=== PATIENT | male | born 1980 | race Caucasian/White ===

== ENCOUNTER 2018-05-24 21:50 | Inpatient (IN) | payer OTHER ==
[2018-05-25] MEDS ORDERED: KETOROLAC 30 MG/ML 1 ML VIAL ONE (00:36)
[2018-05-25] MEDS ORDERED: ACETAMINOPHEN TAB 500 MG TAB ONE (00:36)
[2018-05-25] MEDS ORDERED: ONDANSETRON 4 MG/2 ML VIAL ONE (00:36)
[2018-05-25] MEDS ORDERED: SODIUM CHLORIDE 0.9% 1,000 ML BAG ONE (01:00)
[2018-05-25] MEDS ORDERED: metroNIDAZOLE-NS PMX 500 MG/100 ML BAG ONE (01:00)
[2018-05-25] MEDS ORDERED: cefTRIAXone IN SWFI 1,000 MG/10 ML SYRINGE IVP ONE (01:00)
[2018-05-25 05:37] VITALS: BMI 31.4
[2018-05-25 06:40] LABS: Appearance,Urine Clear (Clear); Bilirubin,Urine Negative (Negative); Blood,Urine Negative (Negative); Color,Urine Yellow; Glucose,Urine (UA) Negative (Negative); Ketones,Urine Trace (Negative); Leukocyte Esterase,Urine Negative (Negative); Mucus,Urine Rare /hpf; Nitrite,Urine Negative (Negative); PH, Urine 5.5 (5.0-8.0); Protein,Urine Negative (Negative); Specific Gravity,Urine 1.018 (1.001-1.035); Urobilinogen,Urine <2.0 mg/dL (<2.0); WBC,Urine <1 /hpf (0-5)
[2018-05-25 06:42] LABS: ALT 42 U/L (21-72); AST 27 U/L (17-59); Albumin 4.4 g/dL (3.5-5.0); Alkaline Phosphatase 93 U/L (38-126); Amylase 59 U/L (30-110); Anion Gap 11 mmol/L; Blood Urea Nitrogen 18 mg/dL (9-20); Calcium 9.6 mg/dL (8.4-10.2); Carbon Dioxide 23 mmol/L (22-30); Chloride 103 mmol/L (98-107); Glucose 100 mg/dL (74-99); Lipase 159 U/L (23-300); Potassium 4.5 mmol/L (3.5-5.1); Sodium 137 mmol/L (137-145); Total Bilirubin 0.5 mg/dL (0.2-1.3); Total Protein 7.2 g/dL (6.3-8.2)
[2018-05-25 06:48] LABS: Basophils % (A) 0 %; Eosinophils % (A) 0 %; HCT 43.6 % (39.0-53.0); HGB 15.1 gm/dL (13.0-17.5); Lymphocytes # (A) 0.6 k/uL (1.0-4.8); Lymphocytes % (A) 7 %; MCH 30.8 pg (25.0-35.0); MCHC 34.6 g/dL (31.0-37.0); MCV 88.9 fL (80.0-100.0); Monocytes # (A) 0.3 k/uL (0-1.0); Monocytes % (A) 4 %; Neutrophils # (A) 6.9 k/uL (1.3-7.7); Neutrophils % (A) 87 %; Platelet Count 261 k/uL (150-450); RDW 12.9 % (11.5-15.5)
[2018-05-25] MEDS ORDERED: ACETAMINOPHEN IV (For NPO) 1,000 MG in EMPTY BAG 1 BAG IVPB PRN (07:41)
--- NOTE | 2018-05-25 11:44 | CT ---
EXAMINATION TYPE: CT abdomen pelvis w con DATE OF EXAM: 05/25/2018 COMPARISON: None HISTORY: RLQ pain and fever CT DLP: 1541.00 mGycm, Automated Exposure Control for Dose Reduction was Utilized. CONTRAST: CT scan of the abdomen and pelvis is performed without oral but with IV Contrast, patient injected wi th 100 mL of Isovue 300. FINDINGS: LUNG BASES: There is partial visualization of right-sided gynecomastia. LIVER/GB: No significant abnormality is appreciated. PANCREAS: Slight heterogeneity of the pancreas without surrounding that stranding or inflammatory tony nge. SPLEEN: No significant abnormality is seen. ADRENALS: No significant abnormality is seen. KIDNEYS: No significant abnormality is seen. BOWEL: Evaluation of bowel slightly suboptimal due to lack of enteric contrast. There is no suspiciou s small and large bowel dilatation. There is appendicolith in appendix axial image 77. Appendix is no t suspiciously dilated from base of cecum. No surrounding inflammation or fat stranding is present. T here is [id number] wall thickening of the right colon extending to the transverse colon and lef t colon up to junction of sigmoid colon. Findings suspicious for a fairly long segment colitis. No we ll-formed fluid collection or abscess is seen. No pneumoperitoneum is evident. PROSTATE/SEMINAL VESICLES: No gross abnormality seen. LYMPH NODES: No greater than 1cm abdominal or pelvic lymph nodes are appreciated. OSSEOUS STRUCTURES: There is moderate disc space narrowing L4-L5 level. There is vacuum disc phenomen on with mild disc space narrowing L5-S1 level. There is facet arthropathy lower lumbar levels. OTHER: There are moderate size right greater than left fat-containing inguinal hernias. Tiny fat-cont aining umbilical hernia axial image 61 IMPRESSION: Appendicolith without convincing CT evidence for acute appendicitis. Suspect very long se gment colitis from cecum up to descending colon junction with sigmoid colon. Differential includes in fectious and inflammatory etiologies. Correlate clinically.
[2018-05-25 11:47] LABS: Basophils % (A) 0 %; Eosinophils % (A) 0 %; HCT 39.5 % (39.0-53.0); HGB 13.4 gm/dL (13.0-17.5); Lymphocytes # (A) 0.5 k/uL (1.0-4.8); Lymphocytes % (A) 8 %; MCHC 33.8 g/dL (31.0-37.0); MCV 88.8 fL (80.0-100.0); Mean Platelet Volume 6.3; Monocytes # (A) 0.3 k/uL (0-1.0); Monocytes % (A) 4 %; Neutrophils # (A) 5.5 k/uL (1.3-7.7); Neutrophils % (A) 86 %; Platelet Count 238 k/uL (150-450); RBC 4.45 m/uL (4.30-5.90); RDW 12.9 % (11.5-15.5); WBC 6.4 k/uL (3.8-10.6)
[2018-05-25] MEDS ORDERED: HYDROmorphone 1 MG/ML 1 ML SYRINGE IVP PRN (11:58)
--- NOTE | 2018-05-25 12:08 | P.GSHP ---
History of Present Illness H&P Date: 05/25/18 This is a 38-year-old male who presented with a 24-hour history of abdominal pain. He states the pain has progressively been getting worse he admits to a little bit of nausea no vomiting and he's been having multiple episodes of loose diarrhea. He denies any blood in his diarrhea. He's never had anything like this before. He's never had abdominal surgery. He did have some fevers at home. His temperature was 101.7 upon arrival. He describes the pain as an aching pain in his lower abdomen on both sides. He has no history of Crohn's or ulcerative colitis that he knows of. He has no sick contacts and he states he did not eat anything out of the ordinary prior to this pain beginning. Past Medical History History of Any Multi-Drug Resistant Organisms: None Reported Past Surgical History: Adenoidectomy, Tonsillectomy Additional Past Surgical History / Comment(s): Right elbo surgery Past Anesthesia/Blood Transfusion Reactions: No Reported Reaction Past Psychological History: No Psychological Hx Reported Smoking Status: Former smoker Past Alcohol Use History: Daily Additional Past Alcohol Use History / Comment(s): pt reports consuming 1-2 beers /day Past Drug Use History: None Reported - Past Family History Father Family Medical History: Myocardial Infarction ([place]) Brother(s) Family Medical History: Diabetes Mellitus Medications and Allergies Home Medications Medication Instructions Recorded Confirmed Type No Known Home Medications 05/25/18 05/25/18 History Allergies Allergy/AdvReac Type Severity Reaction Status Date / Time No Known Allergies Allergy Verified 05/25/18 07:59 Surgical - Exam Osteopathic Statement: *. No significant issues noted on an osteopathic structural exam other than those noted in the History and Physical/Consult. Vital Signs Temp Pulse Resp BP Pulse Ox 101.7 F H 112 H 18 127/74 96 05/25/18 05:22 05/25/18 05:22 05/25/18 05:22 05/25/18 05:22 05/25/18 05:22 - General well developed, well nourished, no distress - Neck trachea midline - Respiratory normal expansion, normal respiratory effort - Cardiovascular Rhythm: regular - Abdomen Soft, nondistended, mild tenderness to palpation in bilateral lower quadrants. No rebound rigidity or guarding - Neurologic normal coordination, normal sensation - Psychiatric oriented to time, oriented to person, oriented to place Results - Labs 05/25/18 11:26 05/25/18 00:15 Abnormal Lab Results - Last 24 Hours (Table) 05/24/18 05/25/18 05/25/18 Range/Units 23:50 00:15 00:15 Lymphocytes # 0.6 L (1.0-4.8) k/uL Glucose 100 H (74-99) mg/dL Urine Ketones Trace H (Negative) Urine Mucus Rare H (None) /hpf 05/25/18 Range/Units 11:26 Lymphocytes # 0.5 L (1.0-4.8) k/uL Glucose (74-99) mg/dL Urine Ketones (Negative) Urine Mucus (None) /hpf Microbiology - Last 24 Hours (Table) 05/24/18 23:50 Urine Culture - Preliminary Urine,Voided Diabetes panel 05/25/18 Range/Units 00:15 Sodium 137 (137-145) mmol/L Potassium 4.5 (3.5-5.1) mmol/L Chloride 103 (98-107) mmol/L Carbon Dioxide 23 (22-30) mmol/L BUN 18 (9-20) mg/dL Creatinine 0.80 (0.66-1.25) mg/dL Glucose 100 H (74-99) mg/dL Calcium 9.6 (8.4-10.2) mg/dL AST 27 (17-59) U/L ALT 42 (21-72) U/L Alkaline Phosphatase 93 (38-126) U/L Total Protein 7.2 (6.3-8.2) g/dL Albumin 4.4 (3.5-5.0) g/dL Calcium panel 05/25/18 Range/Units 00:15 Calcium 9.6 (8.4-10.2) mg/dL Albumin 4.4 (3.5-5.0) g/dL Pituitary panel 05/25/18 Range/Units 00:15 Sodium 137 (137-145) mmol/L Potassium 4.5 (3.5-5.1) mmol/L Chloride 103 (98-107) mmol/L Carbon Dioxide 23 (22-30) mmol/L BUN 18 (9-20) mg/dL Creatinine 0.80 (0.66-1.25) mg/dL Glucose 100 H (74-99) mg/dL Calcium 9.6 (8.4-10.2) mg/dL Adrenal panel 05/25/18 Range/Units 00:15 Sodium 137 (137-145) mmol/L Potassium 4.5 (3.5-5.1) mmol/L Chloride 103 (98-107) mmol/L Carbon Dioxide 23 (22-30) mmol/L BUN 18 (9-20) mg/dL Creatinine 0.80 (0.66-1.25) mg/dL Glucose 100 H (74-99) mg/dL Calcium 9.6 (8.4-10.2) mg/dL Total Bilirubin 0.5 (0.2-1.3) mg/dL AST 27 (17-59) U/L ALT 42 (21-72) U/L Alkaline Phosphatase 93 (38-126) U/L Total Protein 7.2 (6.3-8.2) g/dL Albumin 4.4 (3.5-5.0) g/dL - Imaging CT scan - abdomen: report reviewed, image reviewed CT scan - pelvis: report reviewed, image reviewed Assessment and Plan Assessment: Colitis in a ascending and transverse colon. Initially concern was for appendicitis however patient was seen early this morning and observed his abdominal pain is not increased and his white count has remained within normal limits. Suspicion is low for appendicitis at this time. Plan: Plan is for conservative therapy. Antibiotics for colitis. We will obtain stool studies and test for C. diff. Continue with IV hydration and patient may have a clear liquid diet as tolerated when his abdominal pain improves.
[2018-05-25 12:10] LABS: ALT 38 U/L (21-72); AST 18 U/L (17-59); Albumin 3.6 g/dL (3.5-5.0); Alkaline Phosphatase 77 U/L (38-126); Anion Gap 7 mmol/L; Blood Urea Nitrogen 17 mg/dL (9-20); Calcium 8.5 mg/dL (8.4-10.2); Carbon Dioxide 23 mmol/L (22-30); Chloride 107 mmol/L (98-107); Glucose 110 mg/dL (74-99); Potassium 3.6 mmol/L (3.5-5.1); Sodium 137 mmol/L (137-145); Total Bilirubin 0.5 mg/dL (0.2-1.3); Total Protein 6.1 g/dL (6.3-8.2)
[2018-05-25] MEDS ORDERED: SODIUM CHLORIDE 0.9% 2,000 ML IV ONE (12:34)
[2018-05-25] MEDS ORDERED: ONDANSETRON 4 MG/2 ML VIAL IVP PRN (12:36)
[2018-05-25] MEDS ORDERED: LEVOFLOXACIN 750MG-D5W PMX 750 MG in DEXTROSE/WATER 1 150ML.BAG IVPB STA (12:50)
[2018-05-25] MEDS: SODIUM CHLORIDE 0.9% 1,000 ML IV SCH ×2 (13:36→17:33)
--- NOTE | 2018-05-25 13:47 | P.CONS ---
History of Present Illness - Reason for Consult Consult date: 05/25/18 Medical management Requesting physician: Pineda Richmond - Chief Complaint Lower abdominal pain diarrhea - History of Present Illness The patient is a 38-year-old male that is admitted to primary surgery service under Dr. Richmond after presented with lower abdominal pain. Apparently the patient's symptoms began yesterday last evening with lower abdominal pain that was intermittent described as crampy and sharp at times with associated diarrhea and nausea, the patient denied any vomiting chest pain or shortness of breath, he does report subjective fevers and chills and was found to be febrile here in the ER. Patient denied any skin or visual changes and denied any joint pain. He denied any recent antibiotic use, denied recent travel, denied any recent camping trips or sick contacts. In the ER he had a comprehensive workup consisted of a CT abdomen and pelvis that showed an appendicolith without any convincing evidence for appendicitis. There is suspicion of long segment colitis from cecum to the descending colon junction with sigmoid colon. He was started on IV antibiotics with Rocephin and Flagyl and started on morphine for pain Review of Systems All other 12 point review of systems negative except for HPI Past Medical History History of Any Multi-Drug Resistant Organisms: None Reported Past Surgical History: Adenoidectomy, Tonsillectomy Additional Past Surgical History / Comment(s): Right elbo surgery Past Anesthesia/Blood Transfusion Reactions: No Reported Reaction Past Psychological History: No Psychological Hx Reported Smoking Status: Former smoker Past Alcohol Use History: Daily Additional Past Alcohol Use History / Comment(s): pt reports consuming 1-2 beers /day Past Drug Use History: None Reported - Past Family History Father Family Medical History: Myocardial Infarction ([place]) Brother(s) Family Medical History: Diabetes Mellitus Medications and Allergies Home Medications Medication Instructions Recorded Confirmed Type No Known Home Medications 05/25/18 05/25/18 History Allergies Allergy/AdvReac Type Severity Reaction Status Date / Time No Known Allergies Allergy Verified 05/25/18 07:59 Physical Exam Vitals: Vital Signs Temp Pulse Resp BP Pulse Ox 05/25/18 09:45 101.3 F H 108 H 16 113/71 94 L 05/25/18 05:40 100.4 F H 05/25/18 05:22 101.7 F H 112 H 18 127/74 96 Intake and Output 05/24/18 05/25/18 05/25/18 22:59 06:59 14:59 Other: Weight 102.076 kg Constitutional: No acute distress, conversant, pleasant Eyes: Anicteric sclerae, moist conjunctiva, no lid-lag, PERRLA ENMT: NC/AT,Oropharynx clear, no erythema, exudates Neck:Supple, FROM, no masses, or JVD, No carotid bruits; No thyromegaly Lungs: Clear to auscultation, Clear to percussion, Normal respiratory effort, no accessory muscle use Cardiovascular: Heart regular in rate and rhythm, No murmurs, gallops, or rubs no peripheral edema Abdominal: Soft tender to palpation in the lower abdomen worse on the left side right, nom distended, no guarding, no rebound or rigidity, Normoactive bowel sounds No hepatomegaly, No splenomegaly, No palpable mass No abdominal wall hernia noted Skin: Normal temperature, tone, texture, turgor, No induration No subcutaneous nodules, No rash, lesions, No ulcers Extremities:No digital cyanosis No clubbing, Pedal pulses intact and symmetrical Radial pulses intact and symmetrical Normal gait and station, No calf tenderness Psychiatric: Alert and oriented to person, place and time, Appropriate affect Intact judgement Neuro: Muscles Strength 5/5 in all 4 extremities, Sensation to light touch grossly present throughout, Cranial nerves II-XII grossly intact. No focal sensory deficits Results CBC & Chem 7: 05/25/18 11:26 05/25/18 11:26 Labs: Abnormal Lab Results - Last 24 Hours (Table) 05/24/18 05/25/18 05/25/18 Range/Units 23:50 00:15 00:15 Lymphocytes # 0.6 L (1.0-4.8) k/uL Glucose 100 H (74-99) mg/dL Total Protein (6.3-8.2) g/dL Urine Ketones Trace H (Negative) Urine Mucus Rare H (None) /hpf 05/25/18 05/25/18 Range/Units 11:26 11: Lymphocytes # 0.5 L (1.0-4.8) k/uL Glucose 110 H (74-99) mg/dL Total Protein 6.1 L (6.3-8.2) g/dL Urine Ketones (Negative) Urine Mucus (None) /hpf Microbiology - Last 24 Hours (Table) 05/24/18 23:50 Urine Culture - Preliminary Urine,Voided Assessment and Plan (1) Sepsis Current Visit: Yes Status: Acute Code(s): A41.9 - SEPSIS, UNSPECIFIED ORGANISM SNOMED Code(s): 84312775 (2) Colitis Current Visit: Yes Status: Acute Code(s): K52.9 - NONINFECTIVE GASTROENTERITIS AND COLITIS, UNSPECIFIED SNOMED Code(s): 36623870 (3) Abdominal pain Current Visit: Yes Status: Acute Code(s): R10.9 - UNSPECIFIED ABDOMINAL PAIN SNOMED Code(s): 16705247 (4) Diarrhea Current Visit: Yes Status: Acute Code(s): R19.7 - DIARRHEA, UNSPECIFIED SNOMED Code(s): 98171976 Plan: The patient is admitted to general surgery Dr. richmond his primary service with initial concern for appendicitis however given patient's CT findings primary team is of low suspicion for appendicitis at this time. He was consulted for medical management, agree with getting C. diff and continuing antibiotic coverage with Flagyl and Rocephin will add Levaquin to regimen. Patient does have sepsis as he is tachycardic and is febrile, will give a 2 L normal saline bolus and continue antibiotic regimen as stated .We'll consult GI service to evaluate for Crohn's versus ulcerative colitis. [facility] and continue to follow his clinical course. Follow-up a.m. labs
[2018-05-25] MEDS: cefTRIAXone IN SWFI 1,000 MG/10 ML SYRINGE IVP SCH (13:50)
[2018-05-25] MEDS: HYDROcodone/APAP 5-325MG 1 EACH TAB PO PRN ×3 (14:26→23:45)
[2018-05-25] MEDS: metroNIDAZOLE-NS PMX 500 MG in SALINE 1 100ML.BAG IVPB SCH ×2 (18:57→23:46)
[2018-05-26 00:31] VITALS: RESP 16
[2018-05-26] MEDS: SODIUM CHLORIDE 0.9% 1,000 ML IV SCH (06:14)
[2018-05-26 07:07] LABS: Basophils % (A) 0 %; Eosinophils % (A) 1 %; HCT 38.5 % (39.0-53.0); HGB 12.7 gm/dL (13.0-17.5); Lymphocytes # (A) 0.8 k/uL (1.0-4.8); Lymphocytes % (A) 17 %; MCH 29.5 pg (25.0-35.0); MCHC 32.9 g/dL (31.0-37.0); MCV 89.7 fL (80.0-100.0); Mean Platelet Volume 6.6; Monocytes # (A) 0.2 k/uL (0-1.0); Monocytes % (A) 5 %; Neutrophils # (A) 3.2 k/uL (1.3-7.7); Neutrophils % (A) 74 %; Platelet Count 226 k/uL (150-450); RBC 4.29 m/uL (4.30-5.90); RDW 12.7 % (11.5-15.5); WBC 4.4 k/uL (3.8-10.6)
[2018-05-26 07:22] LABS: ALT 33 U/L (21-72); AST 20 U/L (17-59); Albumin 3.2 g/dL (3.5-5.0); Alkaline Phosphatase 71 U/L (38-126); Anion Gap 9 mmol/L; Blood Urea Nitrogen 15 mg/dL (9-20); Calcium 8.4 mg/dL (8.4-10.2); Carbon Dioxide 22 mmol/L (22-30); Chloride 108 mmol/L (98-107); Glucose 83 mg/dL (74-99); Potassium 3.9 mmol/L (3.5-5.1); Sodium 139 mmol/L (137-145); Total Bilirubin 0.5 mg/dL (0.2-1.3); Total Protein 5.6 g/dL (6.3-8.2)
[2018-05-26] MEDS: metroNIDAZOLE-NS PMX 500 MG in SALINE 1 100ML.BAG IVPB SCH (07:58)
[2018-05-26 08:05] VITALS: BP 145/78; PULSE 93; TEMP 97.3
[2018-05-26] MEDS: HYDROcodone/APAP 5-325MG 1 EACH TAB PO PRN (12:13)
[2018-05-26] MEDS: cefTRIAXone IN SWFI 1,000 MG/10 ML SYRINGE IVP SCH (12:14)
--- NOTE | 2018-05-26 12:35 | P.DS ---
Providers Date of admission: 05/26/18 11:54 Attending physician: Pineda Richmond DO Consults: 05/25/18 12:11 Consult Physician Routine Consulting Provider: Piter Rodas Consult Reason/Comments: medical management Do you want consulting provider notified?: Yes 05/25/18 12:38 Consult Physician Routine Consulting Provider: Kim Hill Consult Reason/Comments: eval for crohns vs UC Do you want consulting provider notified?: Yes Primary care physician: Stated None Hospital Course: 38 year old male admitted to rule out appendicitis on 05/25/18. He was found to have nonspecific colitis likely secondary to infectious source. On 05/26 his pain was resolved and he was tolerating diet, he was stable for discharge on with instructions to follow up with GI and myself. Patient discharged in stable condition Patient Condition at Discharge: Stable Plan - Discharge Summary Discharge Rx Participant: Yes New Discharge Prescriptions: New Ciprofloxacin HCl 500 mg PO BID 7 Days #14 tab metroNIDAZOLE [Flagyl] 500 mg PO TID #21 tab Discharge Medication List Ciprofloxacin HCl 500 mg PO BID 7 Days #14 tab 05/26/18 [Rx] metroNIDAZOLE [Flagyl] 500 mg PO TID #21 tab 05/26/18 [Rx] Follow up Appointment(s)/Referral(s): None,Stated [Primary Care Provider] - 1 Week Pineda Richmond DO [Doctor of Osteopathic Medicine] - 2 Weeks Activity/Diet/Wound Care/Special Instructions: As tolerated Discharge Disposition: HOME SELF-CARE
[2018-05-26] MEDS ORDERED: LEVOFLOXACIN 750MG-D5W PMX 750 MG in DEXTROSE/WATER 1 150ML.BAG IVPB SCH (13:00)
--- NOTE | 2018-05-26 14:26 | P.PN ---
Subjective Progress Note Date: 05/26/18 Patient feeling much better today was afebrile overnight, tachycardia has resolved. Reports that his diarrhea is also much improved as well as his pain. Objective - Vital Signs Vital signs: Vital Signs Temp 97.3 F L 05/26/18 08:03 Pulse 93 05/26/18 08:03 Resp 16 05/26/18 08:03 BP 145/78 05/26/18 08:03 Pulse Ox 96 05/26/18 08:03 Intake & Output 05/25/18 05/26/18 05/26/18 18:59 06:59 18:59 Intake Total 1100 Balance 1100 Intake: Intake, IV Titration 1100 Amount Sodium Chloride 0.9% 1, 1100 000 ml @ 100 mls/hr IV . Q10H [facility] Rx#:[id number] Other: # Voids 1 3 # Bowel Movements 1 - Exam Constitutional: No acute distress, conversant, pleasant Eyes: Anicteric sclerae, moist conjunctiva, no lid-lag, PERRLA ENMT: NC/AT,Oropharynx clear, no erythema, exudates Neck:Supple, FROM, no masses, or JVD, No carotid bruits; No thyromegaly Lungs: Clear to auscultation, Clear to percussion, Normal respiratory effort, no accessory muscle use Cardiovascular: Heart regular in rate and rhythm, No murmurs, gallops, or rubs no peripheral edema Abdominal: Soft Nontender, nom distended, no guarding, no rebound or rigidity, Normoactive bowel sounds No hepatomegaly, No splenomegaly, No palpable mass No abdominal wall hernia noted Skin: Normal temperature, tone, texture, turgor, No induration No subcutaneous nodules, No rash, lesions, No ulcers Extremities:No digital cyanosis No clubbing, Pedal pulses intact and symmetrical Radial pulses intact and symmetrical Normal gait and station, No calf tenderness Psychiatric: Alert and oriented to person, place and time, Appropriate affect Intact judgement Neuro: Muscles Strength 5/5 in all 4 extremities, Sensation to light touch grossly present throughout, Cranial nerves II-XII grossly intact. No focal sensory deficits - Labs CBC & Chem 7: 05/26/18 06:22 05/26/18 06:22 Labs: Abnormal Lab Results - Last 24 Hours (Table) 07/26/18 07/27/18 07/27/18 Range/Units 14:55 06:22 06:22 RBC 4.29 L (4.30-5.90) m/uL Hgb 12.7 L (13.0-17.5) gm/dL Hct 38.5 L (39.0-53.0) % Lymphocytes # 0.8 L (1.0-4.8) k/uL Chloride 108 H (98-107) mmol/L Total Protein 5.6 L (6.3-8.2) g/dL Albumin 3.2 L (3.5-5.0) g/dL Stool Lactoferrin POSITIVE H (NEGATIVE) Microbiology - Last 24 Hours (Table) 05/24/18 23:50 Urine Culture - Final Urine,Voided 05/25/18 14:55 Stool Culture - Preliminary Stool Assessment and Plan (1) Sepsis Narrative/Plan: * Resolved * secondary to colitis, the patient afebrile without leukocytosis * Continue treatment with Flagyl and Levaquin PO Current Visit: Yes Status: Acute Code(s): A41.9 - SEPSIS, UNSPECIFIED ORGANISM SNOMED Code(s): 19942878 (2) Colitis Narrative/Plan: * Infectious versus inflammatory * Per GI recommendations Current Visit: Yes Status: Acute Code(s): K52.9 - NONINFECTIVE GASTROENTERITIS AND COLITIS, UNSPECIFIED SNOMED Code(s): 32505123 (3) Abdominal pain Current Visit: Yes Status: Acute Code(s): R10.9 - UNSPECIFIED ABDOMINAL PAIN SNOMED Code(s): 94598681 (4) Diarrhea Current Visit: Yes Status: Acute Code(s): R19.7 - DIARRHEA, UNSPECIFIED SNOMED Code(s): 22906598 Plan: Patient is medically stable for discharge per primary service
--- NOTE | 2018-05-26 15:54 | P.CONS ---
History of Present Illness - Reason for Consult Consult date: 05/26/18 Colitis Requesting physician: iPter Rodas - History of Present Illness 38-year-old male admitted with acute abdominal pain nonbloody diarrhea 2 days with fever T-max 101.7. No recent travels. No sick contacts. No new medications. No recent antibiotics. No history of these types of GI symptoms. Admission white count 8.0 presently 4.4. Hemoglobin 12.7. Platelet 226. LFTs amylase lipase within normal limits. Urinalysis trace ketones. Stool lactoferrin positive. Giardia negative. C. diff negative. CT abdomen and pelvis appendicolith without convincing evidence of acute appendicitis. Long segment colitis from cecum to descending as well as sigmoid. Differential infectious possible inflammatory etiology. No history of personal or familial inflammatory bowel disease. No changes in vision or skin. No history of chronic diarrhea or rectal bleeding. No unintentional weight loss. No history of EGD colonoscopy. Receiving intravenous antibiotics feels better. Tolerating clears. Review of Systems Constitutional: Admitted with fever, denies chills, sweats, weight gain, or loss. HEENT: Negative for migraines, blurred vision or loss, earaches, drainage, tinnitus, oral mucosal lesions, dysphagia, or odynophagia. Cardiac: Negative for chest pain, arrhythmias, or palpitation. Respiratory: Negative for shortness of breath, hemoptysis, cough, or sputum production. Gastrointestinal: See HPI for pertinent findings. Genitourinary: Negative for hematuria, urgency, frequency, polyuria, dysuria, or penile discharge. Musculoskeletal: Negative for muscle aches, swelling, arthritis, and arthralgias. Neurologic: Negative for stroke or TIA. Endocrine: Negative for thyroid problems. Skin: Negative for rash or itching. Psychiatric: Negative history for depression and anxiety Past Medical History History of Any Multi-Drug Resistant Organisms: None Reported Past Surgical History: Adenoidectomy, Tonsillectomy Additional Past Surgical History / Comment(s): Right elbo surgery Past Anesthesia/Blood Transfusion Reactions: No Reported Reaction Past Psychological History: No Psychological Hx Reported Smoking Status: Former smoker Past Alcohol Use History: Daily Additional Past Alcohol Use History / Comment(s): pt reports consuming 1-2 beers /day Past Drug Use History: None Reported - Past Family History Father Family Medical History: Myocardial Infarction ([place]) Brother(s) Family Medical History: Diabetes Mellitus Medications and Allergies Home Medications Medication Instructions Recorded Confirmed Type Ciprofloxacin HCl 500 mg PO BID 7 Days #14 tab 05/26/18 Rx metroNIDAZOLE [Flagyl] 500 mg PO TID #21 tab 05/26/18 Rx Allergies Allergy/AdvReac Type Severity Reaction Status Date / Time No Known Allergies Allergy Verified 05/25/18 07:59 Physical Exam Vitals: Vital Signs Temp Pulse Resp BP Pulse Ox 05/26/18 08:03 97.3 F L 93 16 145/78 96 05/26/18 00:31 99.2 F 98 16 122/82 95 05/25/18 20:00 98.3 F 103 H 18 139/84 98 05/25/18 15:45 16 05/25/18 15:07 98.6 F 101 H 16 141/83 98 Intake and Output 05/25/18 05/26/18 05/26/18 22:59 06:59 14:59 Intake Total 300 800 Balance 300 800 Intake: Intake, IV Titration 300 800 Amount Sodium Chloride 0.9% 1, 300 800 000 ml @ 100 mls/hr IV . Q10H [facility] Rx#:[id number] Other: # Voids 1 3 # Bowel Movements 1 General appearance: The patient is alert, oriented, in no acute distress. HET: Head is normocephalic and atraumatic. Pupils are equal and reactive. Oropharynx is clear without lesions. Neck: Supple without lymphadenopathy. Trachea midline. Heart: S1 S2. Regular rate and rhythm. Lungs: No crackles or wheezes are heard. Abdomen: Soft, minimal tenderness bilateral lower abdomen, nondistended with bowel sounds. No peritoneal signs. No palpable organomegaly or masses. Extremities: Normal skin color and turgor. No cyanosis, rash, ulceration, clubbing, or edema. Radial and pedal pulses are 2/4 bilaterally. Neurological: No focal deficits. Strength and sensation are grossly intact. Results CBC & Chem 7: 05/26/18 06:22 05/26/18 06:22 Labs: Abnormal Lab Results - Last 24 Hours (Table) 05/25/18 05/25/18 05/25/18 Range/Units 11:26 11:26 14:55 RBC (4.30-5.90) m/uL Hgb (13.0-17.5) gm/dL Hct (39.0-53.0) % Lymphocytes # 0.5 L (1.0-4.8) k/uL Chloride (98-107) mmol/L Glucose 110 H (74-99) mg/dL Total Protein 6.1 L (6.3-8.2) g/dL Albumin (3.5-5.0) g/dL Stool Lactoferrin POSITIVE H (NEGATIVE) 05/26/18 05/26/18 Range/Units 06:22 06:22 RBC 4.29 L (4.30-5.90) m/uL Hgb 12.7 L (13.0-17.5) gm/dL Hct 38.5 L (39.0-53.0) % Lymphocytes # 0.8 L (1.0-4.8) k/uL Chloride 108 H (98-107) mmol/L Glucose (74-99) mg/dL Total Protein 5.6 L (6.3-8.2) g/dL Albumin 3.2 L (3.5-5.0) g/dL Stool Lactoferrin (NEGATIVE) Microbiology - Last 24 Hours (Table) 05/25/18 14:55 Stool Culture - Preliminary Stool 05/24/18 23:50 Urine Culture - Preliminary Urine,Voided CT scan - abdomen: report reviewed (Dr. Hill) Assessment and Plan (1) Colitis Narrative/Plan: Infectious colitis doubt inflammatory bowel disease with positive lactoferrin and fever improved with intravenous antibiotics. No clinical or familial history at this time to suggest underlying inflammatory bowel disease. Current Visit: Yes Status: Acute Code(s): K52.9 - NONINFECTIVE GASTROENTERITIS AND COLITIS, UNSPECIFIED SNOMED Code(s): 84490878 (2) Fever Current Visit: Yes Status: Acute Code(s): R50.9 - FEVER, UNSPECIFIED SNOMED Code(s): 446456874 (3) Abdominal pain Current Visit: Yes Status: Acute Code(s): R10.9 - UNSPECIFIED ABDOMINAL PAIN SNOMED Code(s): 48288750 (4) Sepsis Current Visit: Yes Status: Acute Code(s): A41.9 - SEPSIS, UNSPECIFIED ORGANISM SNOMED Code(s): 71751143 Plan: 1. Diet advancement per general surgery. Continue with IV antibiotics and on discharge for 7-10 days. 2. Follow-up GI office in 3-4 weeks if symptoms do not improve or recur we'll proceed with colonoscopy. Thank you for this kind referral and the opportunity to participate in the care of your patient. This consultation was discussed with Dr. Hill. The impression and plan of care have been directed as dictated.
--- NOTE | 2018-06-02 12:39 | CDI ---
Last Revision, September 2017 Documentation Clarification Form Date: 06/02/18 From: Thea Moise Phone: If you have question, contact Fatemeh Amador, Stamp Analyst at [phone] M-F 8:30 am to 6pm Admit Date: 05/26/2018 11:54:00 AM Patient Name: Guille Garvey Visit Number: [id number] Discharge Date: 05/26/18 ATTENTION: The Clinical Documentation Specialists (CDI) and [facility] Coding Staff appreciate your assistance in clarifying documentation. Please respond to the clarification below the line at the bottom and electronically sign. The CDI & [facility] Coding staff will review the response and follow-up if needed. Please note: Queries are made part of the Legal Health Record. If you have any questions, please contact the author of this message via ITS. Pineda Doyle, DO Consultation from 05/25 states, Patient does have sepsis as he is tachycardic and is febrile, will give a 2 L normal saling bolus and continue antibiotic regimen as stated. Sepsis is also documented on progress note and consultation dated 05/26. Sepsis is not documented on the discharge summary. Further clarification regarding this diagnosis of sepsis is needed for proper reporting purposes. Please clarify: Sepsis, ruled in Sepsis, ruled out Other (please clarify) Clinically unable to determine Thank you for your time. MTDD
== END 2018-05-26 17:05 | disposition home or self-care (01) | DRG 392 ==
LOC: EC 21:50 → 3SUR 05-25 04:32 → OBSVTOIN 05-26 11:54
PROVIDERS: ADMIT Student in an Organized Health Care Education/Training Program; ATTEND Student in an Organized Health Care Education/Training Program
DX: A09 Infectious gastroenteritis and colitis, unspecified (principal); Z87.891 Personal history of nicotine dependence
CPT/HCPCS: 74177; 80053; 81003; 82150; 83605; 83630; 83690; 85025; 87045; 87046; 87086; 87324; 87328; 87329; 96361; 96374; 96375; 99285